=== PATIENT | female | born 1965 | race Caucasian/White ===

== ENCOUNTER 2021-10-18 15:10 | Outpatient (CLI) | payer OTHER | END 2021-10-18 15:11 | disposition home or self-care (01) | LOC: BURRAD 15:10 | PROVIDERS: ATTEND Nurse Practitioner Family | DX: M25.572 Pain in left ankle and joints of left foot (principal); S82.62XA Displaced fracture of lateral malleolus of left fibula, initial encounter for closed fracture ==